=== PATIENT | male | born 1985 | race Two or more races ===

== ENCOUNTER 2023-03-14 22:50 | Emergency (ER) | payer BC ==
[~2023-03-14] VITALS: Ht 177.8 cm; Wt 69.9 kg
[2023-03-14 23:13] VITALS: BP 121/68; TEMP 98.1; O2SAT 98
== END 2023-03-14 23:15 | disposition home or self-care (01) ==
LOC: ER 22:52
DX: Z71.1 Person with feared health complaint in whom no diagnosis is made (principal)